=== PATIENT | male | born 1935 | race African-American/Black ===

== ENCOUNTER 2018-12-07 10:40 | Emergency (ER) | payer OTHER ==
[~2018-12-07] VITALS: Ht 182.9 cm; Wt 117.9 kg
[2018-12-07] MEDS ORDERED: CLONIDINE HCL0.3 M3 PO (11:08)
[2018-12-07] MEDS ORDERED: [UNRECOGNIZED DRUG - OTHER] PO (11:10)
[2018-12-07] MEDS ORDERED: CARDIZEM30 MG PO (11:11)
[2018-12-07 11:43] LABS: ABSOLUTE NEUTROPHILS 2.2 thou/uL (1.4-8.2); BASOPHILS 0.9 % (0.0-2.0); EOSINOPHILS 1.4 % (0.0-3.0); HEMATOCRIT 44.8 % (42.0-52.0); HEMOGLOBIN 14.6 gm/dL (14.0-18.0); LYMPHOCYTES 16.2 % (24.0-44.0); MCH 27.7 pg (26.0-34.0); MCHC 32.6 g/dL (28.0-37.0); MCV 85.1 fL (80.0-100.0); MONOCYTES 9.3 % (1.0-8.0); PLATELET COUNT 161 thou/uL (150-400); POLYS 72.2 % (36.0-66.0); RBC 5.26 mil/uL (4.50-6.00); RDW 15.3 % (10.5-14.5); WBC 3.1 thou/uL (4.0-11.0)
[2018-12-07 11:54] LABS: ANION GAP 5 mmol/L (7-16); BUN 15 mg/dL (7-18); CHLORIDE 101 mmol/L (98-107); CO2 36 mmol/L (21-32); CREATININE 0.9 mg/dL (0.7-1.3); GLUCOSE 101 mg/dL (74-106); SODIUM 142 mmol/L (136-145)
[2018-12-07 11:55] LABS: URINE BILIRUBIN NEGATIVE (Negative); URINE BLOOD 2+ (Negative); URINE CLARITY CLEAR; URINE COLOR YELLOW; URINE GLUCOSE-RANDOM* NEGATIVE (Negative); URINE KETONES NEGATIVE (Negative); URINE LEUKOCYTES-REFLEX NEGATIVE (Negative); URINE NITRITE-REFLEX NEGATIVE (Negative); URINE PROTEIN (DIPSTICK) 1+ (Negative); URINE SPECIFIC GRAVITY 1.025 (1.005-1.035); URINE UROBILINOGEN 0.2 E.U./dl (0.2-1.0)
[2018-12-07 12:03] LABS: BACTERIA-REFLEX None Seen /HPF (None Seen); CASTS None Seen /LPF (None Seen); CRYSTALS None Seen /LPF (None Seen); MUCUS 0-3 Light strn/LPF (None Seen); SQUAMOUS 0-3 Few /LPF (0-3); URINE RBC 0-2 Rare /HPF (0-2); URINE WBC-REFLEX 0-5 Rare /HPF (0-5)
[2018-12-07 12:04] LABS: ALBUMIN 3.2 g/dL (3.4-5.0); SGOT 15 U/L (15-37); SGPT 18 U/L (30-65); TOTAL BILIRUBIN 0.9 mg/dL (<0.1-1.0); TOTAL PROTEIN 6.7 g/dL (6.4-8.2); TROPONIN-I <0.06 ng/mL (<0.06)
[2018-12-07] MEDS ORDERED: MIRALAX17 GM PO (14:18)
[2018-12-07 15:19] VITALS: BP 166/88
--- NOTE | 2018-12-08 11:25 | EKG ---
[address] [address] [place] [address] ELECTROCARDIOGRAM REPORT Name: WARREN PEDROZA [facility] [id number] ������������������ Admission: 12/07/18 ������������������ Attend Phys: Discharge: 12/07/18 ������������������ Date of : 37 Report #: [id number] ����������������������������������������������������������������� [id number] THIS REPORT FOR: //name// 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[place] : 1935 Requested By: Noel Hampton Order Number: [id number] MD: Demarcus Méndez Measurements Intervals [place] Rate: 83 P: -6 NM: 154 QRS: -41 QRSD: 154 T: 59 QT: 428 QTc: 503 Interpretive Statements Sinus rhythm Frequent premature ventricular contractions left atrial enlargement Right bundle branch block Nonspecific ST-T wave changes Compared to ECG 05/29/2005 06:25:51 Ventricular premature complex(es) now present Right bundle-branch block now present Electronically Signed On 12-08-2018 11:25:15 ECHOMETER ENGINEER by Demarcus Méndez [email or web address] ��������������������������������������������� <ELECTRONICALLY SIGNED> ���������������������������������������� By: Demarcus Méndez MD ��������������������������������������������� 12/08/18 1125 1200 1200 Demarcus Méndez MD /EPI
== END 2018-12-07 15:41 | disposition home or self-care (01) ==
LOC: ER 10:40
PROVIDERS: Physician Assistant
DX: K59.00 Constipation, unspecified (principal); I16.0 Hypertensive urgency; R41.3 Other amnesia; Z87.891 Personal history of nicotine dependence; Z88.8 Allergy status to other drugs, medicaments and biological substances; R41.0 Disorientation, unspecified

== ENCOUNTER → 2018-12-26 | Outpatient (CLI) | payer OTHER ==
[~2018-12-26] MED LIST: CARDIZEM30 MG PO; CLONIDINE HCL0.3 M3 PO; MIRALAX17 GM PO; [UNRECOGNIZED DRUG - OTHER] PO
== END ==
LOC: SEN 09:35
DX: I16.9 Hypertensive crisis, unspecified (principal); Z91.14 Patient's other noncompliance with medication regimen; Z79.899 Other long term (current) drug therapy

== ENCOUNTER 2019-03-07 09:41 | Emergency (ER) | payer OTHER ==
[2019-03-07 09:55] VITALS: BP 236/137
[2019-03-07 10:06] LABS: BE(vivo) -10.8 mmol/L (-2 to +3); HCO3 24.6 mmol/L (22.0-26.0); PO2 80.3 mmHg (80.0-100.0); sO2 85.1 % (92.0-98.0)
[2019-03-07 10:11] LABS: PCO2 119.3 mmHg (35.0-45.0); pH 6.933 (7.360-7.450)
[2019-03-07 10:24] LABS: URINE BLOOD TRACE (Negative); URINE CLARITY CLEAR; URINE COLOR YELLOW; URINE GLUCOSE-RANDOM* NEGATIVE (Negative); URINE KETONES NEGATIVE (Negative); URINE LEUKOCYTES-REFLEX NEGATIVE (Negative); URINE NITRITE-REFLEX NEGATIVE (Negative); URINE PROTEIN (DIPSTICK) 2+ (Negative); URINE SPECIFIC GRAVITY >= 1.030 (1.005-1.035)
[2019-03-07 10:28] LABS: ICTOTEST (BILI CONFIRMATORY) Negative (Negative); URINE BILIRUBIN NEGATIVE (Negative)
--- NOTE | 2019-03-07 10:34 | NUR ---
AMP EPI GIVEN IV R JUGULAR 1025 BICARB
--- NOTE | 2019-03-07 10:43 | NUR ---
1 AMP EPI PUSHED PER VERBAL ORDER FROM DR VARGAS
[2019-03-07 10:54] LABS: BACTERIA-REFLEX 1-9 Few /HPF (None Seen); CRYSTALS None Seen /LPF (None Seen); HYALINE CASTS 4-10 Moderate /LPF (None Seen); SQUAMOUS None Seen /LPF (0-3); URINE RBC 0-2 Rare /HPF (0-2); URINE WBC-REFLEX 0-5 Rare /HPF (0-5)
[2019-03-07 11:05] VITALS: BP 174/83
[2019-03-07 11:06] LABS: HEMATOCRIT 45.2 % (42.0-52.0); HEMOGLOBIN 13.5 gm/dL (14.0-18.0); MCH 27.1 pg (26.0-34.0); MCHC 29.8 g/dL (28.0-37.0); MCV 90.9 fL (80.0-100.0); RBC 4.97 mil/uL (4.50-6.00); RDW 17.3 % (10.5-14.5); WBC 9.8 thou/uL (4.0-11.0)
[2019-03-07 11:19] LABS: CALCIUM 8.6 mg/dL (8.5-10.1); CREATININE 2.4 mg/dL (0.7-1.3); POTASSIUM 4.8 mmol/L (3.5-5.1)
--- NOTE | 2019-03-07 11:23 | NUR ---
2 AMPS BICARB PUSHED FROM CRASH CART PER VERBAL ORDER AT BEDSIDE DR VARGAS, PULM AND PTS DAUGHTER AT BEDSIDE
--- NOTE | 2019-03-07 11:27 | NUR ---
1 AMP EPI GIVEN
--- NOTE | 2019-03-07 11:28 | NUR ---
PULSE CHECK; NO PULSE
[2019-03-07 11:30] LABS: ABSOLUTE NEUTROPHILS 7.3 thou/uL (1.4-8.2); CORRECTED WBC 8.8 thou/uL (4.0-11.0); METAMYELOCYTES 2 %; NUCLEATED RBCS 12 /100WBC
[2019-03-07 11:31] LABS: ANISOCYTOSIS 1+; POLYCHROMASIA OCCASIONAL
[2019-03-07 11:32] LABS: PLATELET COUNT 143 thou/uL (150-400)
[2019-03-07 11:33] LABS: ALBUMIN 2.8 g/dL (3.4-5.0); TOTAL BILIRUBIN 1.3 mg/dL (<0.1-1.0); TOTAL PROTEIN 6.5 g/dL (6.4-8.2)
[2019-03-07 11:37] LABS: TROPONIN-I 0.74 ng/mL (<0.06)
--- NOTE | 2019-03-07 11:37 | NUR ---
TIME OF 1446
--- NOTE | 2019-03-07 16:15 | EKG ---
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 : 1935 Requested By: Virgen Maguire Order Number: [id number] MD: Aleksander Hendrickson Measurements Intervals [place] Rate: 90 P: -28 NM: 96 QRS: 101 QRSD: 191 T: 102 QT: 400 QTc: 490 Interpretive Statements Sinus rhythm Short NM interval Left atrial enlargement Right bundle branch block Repol abnrm suggests ischemia, diffuse leads Compared to ECG 12/07/2018 12:00:46 Electronically Signed On 03-07-2019 16:15:23 CDT by Aleksander Hendrickson [email or web address] ��������������������������������������������� <ELECTRONICALLY SIGNED> ���������������������������������������� By: Aleksander Hendrickson MD ��������������������������������������������� 03/07/19 1615 Aleksander Hendrickson MD /PETRA
[2019-03-08 09:08] LABS: POC ANION GAP 8 mmol/L (7-16); POC BUN 65 mg/dL (7-18); POC CHLORIDE 108 mmol/L (98-107); POC CREATININE 1.4 mg/dL (0.6-1.3); POC GLUCOSE 124 mg/dL (70-99); POC HEMOGLOBIN 15.3 g/dL (14.0-18.0); POC POTASSIUM 5.2 mmol/L (3.5-5.1); POC SODIUM 143 mmol/L (136-145); POC TCO2 33 mmol/L (21-32)
== END 2019-03-07 16:12 ==
LOC: ER 09:41 → EROBS 10:48 → ER 10:48
PROVIDERS: Emergency Medicine
DX: I46.9 Cardiac arrest, cause unspecified (principal); E87.2 Acidosis; I10 Essential (primary) hypertension; I25.10 Atherosclerotic heart disease of native coronary artery without angina pectoris; Z95.5 Presence of coronary angioplasty implant and graft; Z87.891 Personal history of nicotine dependence; Z88.8 Allergy status to other drugs, medicaments and biological substances